=== PATIENT | male | born 1975 | race Hispanic/Latino ===

== ENCOUNTER 2017-12-30 07:09 | Observation (INO) | payer OTHER ==
[2017-12-30] MEDS ORDERED: Naproxen 500 MG TAB PO STA (08:04)
--- NOTE | 2017-12-30 08:26 | ED PDOC ---
Upper Extremity Pain/Injury Time Seen by Provider: 12/30/17 07:34 Chief Complaint (Nursing): Upper Extremity Problem/Injury Chief Complaint (Provider): left arm pain History Per: Patient History/Exam Limitations: no limitations Onset/Duration Of Symptoms: Hrs (04:30) Current Symptoms Are (Timing): Still Present Quality: Other (shooting) Additional Complaint(s): Te Yoo is a 42 year old male, with no significant past medical history, who presents to the emergency department complaining of a shooting left arm pain onset 04:30. Patient states pain is located along the tricep and medial arm. He further states changing positions did not relieve pain. He denies similar symptoms in the past. Patient also reports having shortness of breath after which he discussed with partner and decided to come to ED. Patient is currently taking Lexapro but otherwise is healthy. Over the weekend he felt like having flu-like symptoms including body aches, generalized weakness and diarrhea but reports symptoms resolved by last night. He denies any sick contacts or recent travel. No further medical complaints. PMD: None provided. Past Medical History Reviewed: Historical Data, Nursing Documentation, Vital Signs Vital Signs: Last Vital Signs Temp Pulse 84 12/30/17 07:20 Resp 16 12/30/17 07:20 BP 102/65 12/30/17 07:20 Pulse Ox 99 12/30/17 07:20 - Medical History PMH: No Chronic Diseases - Surgical History Surgical History: No Surg Hx - Family History Family History: States: Unknown Family Hx - Social History Current smoker - smoking cessation education provided: Yes (light smoker <10 ci garettes daily) Alcohol: Social Drugs: Denies - Immunization History Hx Tetanus Toxoid Vaccination: No Hx Influenza Vaccination: No Hx Pneumococcal Vaccination: No - Home Medications Home Medications: Ambulatory Orders Medication Instructions Recorded Escitalopram Oxalate [Lexapro] 5 mg PO DAILY 12/30/17 - Allergies Allergies/Adverse Reactions: Allergies Allergy/AdvReac Type Severity Reaction Status Date / Time No Known Allergies Allergy Verified 12/30/17 07:41 Review of Systems ROS Statement: Except As Marked, All Systems Reviewed And Found Negative Constitutional: Negative for: Weakness Respiratory: Positive for: Shortness of Breath Gastrointestinal: Negative for: Diarrhea Musculoskeletal: Positive for: Arm Pain (left ) Physical Exam - Reviewed Nursing Documentation Reviewed: Yes Vital Signs Reviewed: Yes - Physical Exam Appears: Positive for: No Acute Distress Head Exam: Positive for: ATRAUMATIC Skin: Positive for: Normal Color, Warm, Dry Eye Exam: Positive for: Normal appearance, EOMI, PERRL Neck: Positive for: Painless ROM Cardiovascular/Chest: Positive for: Regular Rate, Rhythm, Chest Non Tender. Negative for: Murmur Respiratory: Positive for: Normal Breath Sounds. Negative for: Respiratory Distress Gastrointestinal/Abdominal: Positive for: Normal Exam, Soft. Negative for: Tenderness, Guarding, Rebound Back: Positive for: Normal Inspection. Negative for: L CVA Tenderness, R CVA Tenderness, Vertebral Tenderness (No tenderness to palpation of spine) Extremity: Positive for: Normal ROM (Full ROM of shoulder and arm. No palpable crepitus or clicking). Negative for: Tenderness, Deformity, Swelling Neurologic/Psych: Positive for: Alert, Oriented, Gait (steady) - Laboratory Results Result Diagrams: 12/30/17 09:20 12/30/17 09:20 - ECG O2 Sat by Pulse Oximetry: 99 (RA) Pulse Ox Interpretation: Normal Medical Decision Making Medical Decision Making: Time: 07:34 Initial Impression: work up for cardiac etiology of pain vs muscle cramping due to electrolyte disturbance due to diarrhea vs radiculopathy. Discuss plan to r/o pulmnoary and electrolyte etiology with pt. through bloodwork. Discuss possibility of radiculopathy and patient prefers to not have imagine of spine done at this time. Discuss findings to determine if further work up is needed Initial Plan: --VBG --BMP --Troponin I --CBC w/ differential --Flexeril 10 mg PO --Naproxen 500 mg PO 10:00 -Troponin at 4, repeat EKG, IV fluids for possible pericarditis. Patient remains comfortable with normal vitals. Already given Naproxen and possible admission for observation. --- 11:[address] Heredia bedside who agress that pt is stable at this point. Recommends repeat troponin at 1:30pm 1:38 Pt's repeat troponin increased to >5.0. Spoke with Dr. Heredia who recommends ECHO and admission for observation but without EKG abnormalities, will not give Heparin or TPA. Spoke to Dr. Irwin who is aware of pt status. Scribe Attestation: Documented by Robby Stock, acting as a scribe for Meena Martini MD. Provider Scribe Attestation: All medical record entries made by the Scribe were at my direction and personally dictated by me. I have reviewed the chart and agree that the record accurately reflects my personal performance of the history, physical exam, medic al decision making, and the department course for this patient. I have also personally directed, reviewed, and agree with the discharge instructions and disposition. Disposition - Clinical Impression Clinical Impression: Elevated troponin, Shortness of breath - Patient ED Disposition Is Patient to be Admitted: Yes - Disposition Disposition Time: 12:30 Condition: GUARDED
[2017-12-30 09:22] LABS: VENOUS BLOOD GAS BASE EXCESS 2.8 mmol/L (0.0-2.0); VENOUS BLOOD GAS PCO2 56 mmHg (40-60); VENOUS BLOOD GAS PO2 21 mm/Hg (30-55); VENOUS BLOOD PH 7.34 (7.32-7.43)
[2017-12-30 09:29] LABS: BASO % 0.5 % (0.0-2.0); EOS # 0.2 K/uL (0.0-0.7); EOS % 2.3 % (0.0-4.0); HEMOGLOBIN 14.5 g/dL (12.0-18.0); LYMPH # 2.2 K/uL (1.0-4.3); LYMPH % 31.6 % (20.0-40.0); MEAN CELL VOLUME 99.3 fl (80.0-94.0); MEAN CORPUSCULAR HEMOGLOBIN 33.9 pg (27.0-31.0); MEAN CORPUSCULAR HGB CONC 34.1 g/dL (33.0-37.0); MEAN PLATELET VOLUME 8.3 fl (7.2-11.7); MONO # 0.9 K/uL (0.0-0.8); MONO % 13.5 % (0.0-10.0); NEUT # 3.7 K/uL (1.8-7.0); NEUT % 52.1 % (50.0-75.0); RBC 4.28 Mil/uL (4.40-5.90); RED CELL DISTRIBUTION WIDTH 13.6 % (11.5-14.5)
[2017-12-30] MEDS ORDERED: Naproxen 500 MG TAB PO ONE (09:32)
[2017-12-30 09:38] LABS: BLOOD UREA NITROGEN 9 mg/dl (9-20); CALCIUM 9.5 mg/dL (8.4-10.2); GFR NON-AFRICAN AMERICAN > 60
[2017-12-30] MEDS ORDERED: Sodium Chloride 0.9% 1,000 ML IV STA (09:54)
--- NOTE | 2017-12-30 11:06 | CARD ---
APPROVED REPORT Date of service: 12/30/2017 EKG Measurement Heart [id number] <Conclusion> Normal sinus rhythm ST elevation, consider early repolarization otherwise normal ECG
--- NOTE | 2017-12-30 12:10 | ED PDOC ---
ED Additional Note - Date & Time of Evaluation Date of Evaluation: 12/30/17 Time of Evaluation: 10:55 - Physician Additional Note Physician Additional Note: This is cardiac consultation. The patient was seen at the request of Dr. Martini in the emergency room. This 42-year-old man came into the emergency room after he experienced left arm ache which woke him up. The patient gives history of having had chills and fever and body ache and diarrhea couple of days back which had resolved yesterday. The patient had also experienced significant neck discomfort on the same day. He denies any injury or trauma to the neck. The patient has smoked off and on for almost 20 years. He also runs approximately 2-2-1/2 miles off and on. He had recently taken this up couple of weeks back. He is able to do this without any chest discomfort of sudden shortness of breath. He denies any history of hypertension or diabetes. One of his grandfathers had of coronary artery disease but otherwise there is no vascular disease in the family. He has never been hospitalized and is not on any chronic medications except Lexapro. Physical examination shows a young man who is quite alert awake coherent afebrile with a pulse rate of 70 bpm regular and a blood pressure of 108/70 mmHg. His jugular venous pressure was not elevated and there was no edema over his lower extremity. The pedal pulses were well felt. There were no carotid br uits. There was no precordial tenderness. The apex was palpable in the fifth space the first and second heart sounds are normal there was no murmur or gallop there were no rales. His abdomen was soft liver and spleen are not palpable. His electrocardiogram showed sinus rhythm with an essentially normal EKG pattern upon admission to the hospital at 7:55 AM and again at 10:30. The initial troponin level was 4.14 ng/dl. the rest of his labs were noted. Impression: Abnormal troponin levels in the setting not suggestive of acute coronary syndrome. The patient at this juncture is free of any discomfort and is hemodynamically stable. He will be observed and serial enzymes will be drawn. At this juncture is hemodynamically stable.
[2017-12-31 00:14] VITALS: RESP 18; O2SAT 99
[2017-12-31 05:56] LABS: BASO % 0.3 % (0.0-2.0); EOS # 0.2 K/uL (0.0-0.7); EOS % 3.1 % (0.0-4.0); HEMOGLOBIN 13.8 g/dL (12.0-18.0); LYMPH # 2.4 K/uL (1.0-4.3); LYMPH % 33.2 % (20.0-40.0); MEAN CELL VOLUME 99.3 fl (80.0-94.0); MEAN CORPUSCULAR HEMOGLOBIN 34.2 pg (27.0-31.0); MEAN CORPUSCULAR HGB CONC 34.4 g/dL (33.0-37.0); MEAN PLATELET VOLUME 8.3 fl (7.2-11.7); MONO # 0.8 K/uL (0.0-0.8); MONO % 11.7 % (0.0-10.0); NEUT # 3.7 K/uL (1.8-7.0); NEUT % 51.7 % (50.0-75.0); RBC 4.03 Mil/uL (4.40-5.90); RED CELL DISTRIBUTION WIDTH 13.7 % (11.5-14.5); WHITE BLOOD COUNT 7.2 K/uL (4.8-10.8)
[2017-12-31 06:26] LABS: LDL CHOLESTEROL 39 mg/dL (0-129)
[2017-12-31 06:48] LABS: BLOOD UREA NITROGEN 13 mg/dl (9-20); CALCIUM 9.4 mg/dL (8.4-10.2); GFR NON-AFRICAN AMERICAN > 60
[2017-12-31 06:49] LABS: ALB/GLOB RATIO 1.3 (1.0-2.1); ALBUMIN 3.5 g/dL (3.5-5.0); ALT/SGPT 34 U/L (21-72); AST/SGOT 58 U/L (17-59); HDL CHOLESTEROL 69 MG/DL (30-70)
--- NOTE | 2017-12-31 07:40 | CP.PCM.HP ---
<Sultan Sofia - Last Filed: 12/31/17 09:26> History of Present Illness - History of Present Illness History of Present Illness: 42 yo male pmhx depression and anxiety presented to [facility] ED yesterday after experiencing shooting left arm pain that woke up the patient. Patient reports pain lasted for 10-15 minutes. Patient reports he had viral illness with generalized aches, subjective fever, chills and diarrhea started on 12/25/17 and resolved on 12/29/17.Denies any chest pain, dyspnea, extremity weakness, nausea, vomiting, headache, dizziness or focal weakness. Patient reports he smokes cig arettes on/off for last 20 yrs and for last 3 months he smokes 5 cigarettes daily. Also, consumes 4-5 drinks of alcohol daily. Denies any heroine or cocaine use.Takes adderall once a week for focus. In ED, patient had elevated troponin and was admitted to evaluate for ACS. ROS: all 12 systems reviewed and negative, except as mentioned in HPI PMHX: depression, anxiety, alcohol use disorder Medications: Lexapro, klonopin (on/off), adderall allergies: NKDA Pshx: denies Social hx: drinks alochol daily, smokes 5 cigarettes/day, denies other drug uses. family hx: Maternal grandfather had CAD PMD: one medical Present on Admission - Present on Admission Any Indicators Present on Admission: No Review of Systems - Review of Systems All systems: reviewed and no additional remarkable complaints except (as mentioned in HPI) Past Patient History - Past Medical History & Family History Past Medical History?: No - Past Social History Smoking Status: Current Some Days Smoker - HEMATOLOGICAL/ONCOLOGICAL Hx AIDS: No Hx Human Immunodeficiency Virus (HIV): No - MUSCULOSKELETAL/RHEUMATOLOGICAL Hx Falls: No - PSYCHIATRIC Hx Substance Use: Yes - SURGICAL HISTORY Hx Surgeries: No - ANESTHESIA Hx Anesthesia: No Meds Allergies/Adverse Reactions: Allergies Allergy/AdvReac Type Severity Reaction Status Date / Time No Known Allergies Allergy Verified 12/30/17 07:41 Physical Exam - Constitutional Appears: Non-toxic, No Acute Distress - Head Exam Head Exam: ATRAUMATIC, NORMAL INSPECTION - Eye Exam Eye Exam: EOMI, Normal appearance, PERRL - ENT Exam ENT Exam: Mucous Membranes Moist - Neck Exam Neck exam: Positive for: Full Rom, Normal Inspection. Negative for: Meningismus - Respiratory Exam Respiratory Exam: Clear to Auscultation Bilateral, NORMAL BREATHING PATTERN. absent: Rhonchi, Wheezes - Cardiovascular Exam Cardiovascular Exam: REGULAR RHYTHM, RRR, +S1, +S2 - GI/Abdominal Exam GI & Abdominal Exam: Normal Bowel Sounds, Soft. absent: Tenderness - Extremities Exam Extremities exam: Positive for: normal inspection. Negative for: calf tenderness - Neurological Exam Neurological exam: Alert, CN II-XII Intact, Oriented x3 - Psychiatric Exam Psychiatric exam: Normal Affect, Normal Mood - Skin Skin Exam: Normal Color, Warm Results - Vital Signs Recent Vital Signs: Last Vital Signs Temp 97.7 F 12/31/17 00:13 Pulse 87 12/31/17 00:13 Resp 18 12/31/17 00:13 BP 107/69 12/31/17 00:13 Pulse Ox 99 12/31/17 00:13 - Labs Result Diagrams: 12/31/17 05:00 12/31/17 05:00 Labs: Laboratory Results - last 24 hr 12/30/17 12/30/17 12/30/17 08:04 09:20 09:20 WBC 7.0 RBC 4.28 L Hgb 14.5 Hct 42.5 MCV 99.3 H MCH 33.9 H MCHC 34.1 RDW 13.6 Plt Count 236 MPV 8.3 Neut % (Auto) 52.1 Lymph % (Auto) 31.6 [place] % (Auto) 13.5 H Eos % (Auto) 2.3 Baso % (Auto) 0.5 Neut # (Auto) 3.7 Lymph # (Auto) 2.2 [place] # (Auto) 0.9 H Eos # (Auto) 0.2 Baso # (Auto) 0.0 pO2 21 L VBG pH 7.34 VBG pCO2 56 VBG HCO3 25.0 VBG Total CO2 31.9 H VBG O2 Sat (Calc) 32.8 L VBG Base Excess 2.8 H VBG Potassium 4.0 Sodium 139.0 142 Chloride 100.0 104 Glucose 75 Lactate 0.7 FiO2 21.0 Potassium 4.2 Carbon Dioxide 28 Anion Gap 14 BUN 9 Creatinine 0.6 L Est GFR ( Amer) > 60 Est GFR (Non-Af Amer) > 60 Random Glucose 87 Calcium 9.5 Total Bilirubin AST ALT Alkaline Phosphatase Troponin I 4.1400 H* Total Protein Albumin Globulin Albumin/Globulin Ratio Triglycerides Cholesterol LDL Cholesterol Direct HDL Cholesterol Venous Blood Potassium 4.0 12/30/17 12/30/17 12/31/17 11:55 20:02 05:00 WBC 7.2 RBC 4.03 L Hgb 13.8 Hct 40.0 MCV 99.3 H MCH 34.2 H MCHC 34.4 RDW 13.7 Plt Count 248 MPV 8.3 Neut % (Auto) 51.7 Lymph % (Auto) 33.2 [place] % (Auto) 11.7 H Eos % (Auto) 3.1 Baso % (Auto) 0.3 Neut # (Auto) 3.7 Lymph # (Auto) 2.4 [place] # (Auto) 0.8 Eos # (Auto) 0.2 Baso # (Auto) 0.0 pO2 VBG pH VBG pCO2 VBG HCO3 VBG Total CO2 VBG O2 Sat (Calc) VBG Base Excess VBG Potassium Sodium Chloride Glucose Lactate FiO2 Potassium Carbon Dioxide Anion Gap BUN Creatinine Est GFR ( Amer) Est GFR (Non-Af Amer) Random Glucose Calcium Total Bilirubin AST ALT Alkaline Phosphatase Troponin I 5.1900 H* 5.1000 H* Total Protein Albumin Globulin Albumin/Globulin Ratio Triglycerides Cholesterol LDL Cholesterol Direct HDL Cholesterol Venous Blood Potassium 12/31/17 05:00 WBC RBC Hgb Hct MCV MCH MCHC RDW Plt Count MPV Neut % (Auto) Lymph % (Auto) [place] % (Auto) Eos % (Auto) Baso % (Auto) Neut # (Auto) Lymph # (Auto) [place] # (Auto) Eos # (Auto) Baso # (Auto) pO2 VBG pH VBG pCO2 VBG HCO3 VBG Total CO2 VBG O2 Sat (Calc) VBG Base Excess VBG Potassium Sodium 139 Chloride 104 Glucose Lactate FiO2 Potassium 4.9 Carbon Dioxide 28 Anion Gap 12 BUN 13 Creatinine 0.8 Est GFR ( Amer) > 60 Est GFR (Non-Af Amer) > 60 Random Glucose 113 H Calcium 9.4 Total Bilirubin 0.2 AST 58 ALT 34 Alkaline Phosphatase 45 Troponin I Total Protein 6.3 Albumin 3.5 Globulin 2.8 Albumin/Globulin Ratio 1.3 Triglycerides 85 Cholesterol 137 LDL Cholesterol Direct 39 HDL Cholesterol 69 Venous Blood Potassium Assessment & Plan - Assessment and Plan (Free Text) Assessment: Assessment: 42 yo male pmhx depression and anxiety presented to ED for left arm pain yesterday. Patient is admitted to telemetry for elevated troponin and evaluation for ACS. Plan: Admit to Telemetry Cardiology consult appreciated Dr. Heredia Follow serial of troponin Follow ECG for any evolution Labs Patient seen and examined with Dr. Irwin during rounds this AM Sultan Black, [id number] <Kingsley Irwin - Last Filed: 01/01/18 20:35> Results - Vital Signs Recent Vital Signs: Last Vital Signs Temp 98.1 F 12/31/17 12:22 Pulse 80 12/31/17 12:22 Resp 18 12/31/17 12:22 BP 123/80 12/31/17 12:22 Pulse Ox 99 12/31/17 12:22 - Labs Result Diagrams: 12/31/17 05:00 12/31/17 05:00 Labs: Laboratory Results - last 24 hr 12/31/17 05:00 25-OH Vitamin D Total 26 L Assessment & Plan - Assessment and Plan (Free Text) Assessment: Patient was personally seen and examined by me in rounds with residents. Available labs and diagnostic data reviewed. Case, Patient's condition and management plan discussed with residents in rounds. Agree with resident's progress note. Plan: As ordered.
--- NOTE | 2017-12-31 07:41 | CARD ---
APPROVED REPORT Date of service: 12/31/2017 EKG Measurement Heart [id number] <Conclusion> Normal sinus rhythm with sinus arrhythmia ST elevation, consider inferolateral injury, pericarditis, or early repolarization RSR' in v1 suggests RV conduction delay Abnormal ECG
--- NOTE | 2017-12-31 08:06 | CARD ---
APPROVED REPORT Date of service: 12/30/2017 EXAM: Two-dimensional and M-mode echocardiogram with Doppler and color Doppler. Other Information Quality : GoodRhythm : NSR INDICATION Elevated Troponin 2D DIMENSIONS IVSd1.14 (0.7-1.1cm)LVDd4.90 (3.9-5.9cm) LVOT Diameter1.86 (1.8-2.4cm)PWd1.12 (0.7-1.1cm) IVSs1.53 (0.8-1.2cm)LVDs3.01 (2.5-4.0cm) FS (%) 38.6 %PWs1.56 (0.8-1.2cm) M-Mode DIMENSIONS Left Atrium (MM)3.18 (2.5-4.0cm)IVSd1.26 (0.7-1.1cm) Aortic Root2.82 (2.2-3.7cm)LVDd5.03 (4.0-5.6cm) Aortic Cusp Exc.2.38 (1.5-2.0cm)PWd0.94 (0.7-1.1cm) IVSs1.65 cmFS (%) 33 % LVDs3.35 (2.0-3.8cm)PWs1.35 cm Aortic Valve AoV Peak Fvdiffrp086.5cm/sAoV VTI19.8cmAO Peak GR.5mmHg LVOT Peak Kymacjaj691.9cm/sLVOT VTI20.76cmAO Mean GR.3mmHg NO (VMAX)1.10jg1PQW (VTI)1.54cm2 Mitral Valve E/A ratio0.0 TDI E/Lateral E'0.0E/Medial E'0.0 Pulmonary Valve PV Peak Tdftvinp545.6cm/s LEFT VENTRICLE The left ventricle is normal size. There is normal left ventricular wall thickness. Left ventricle systolic function is normal. The Ejection Fraction is 65-70%. LVEF is 65-70%. There is normal LV segmental wall motion. The left ventricular diastolic function is normal. RIGHT VENTRICLE The right ventricle is normal size. There is normal right ventricular wall thickness. The right ventricular systolic function is normal. ATRIA The left atrium size is normal. The right atrium size is normal. AORTIC VALVE The aortic valve is normal in structure. No aortic regurgitation is present. There is no aortic valvular stenosis. MITRAL VALVE The mitral valve is normal in structure. There is no evidence of mitral valve prolapse. There is no mitral valve stenosis. Mitral regurgitation is trace to mild. TRICUSPID VALVE The tricuspid valve is normal in structure. There is no tricuspid valve regurgitation noted. PULMONIC VALVE The pulmonary valve is normal in structure. There is no pulmonic valvular regurgitation. GREAT VESSELS The aortic root is normal in size. The IVC is normal in size and collapses >50% with inspiration. PERICARDIAL EFFUSION The pericardium appears normal. <Conclusion> The left ventricle is normal size. There is normal left ventricular wall thickness. There is normal LV segmental wall motion. Left ventricle systolic function is normal. The Ejection Fraction is 65-70%. The left ventricular diastolic function is normal.
--- NOTE | 2017-12-31 10:01 | CP.PCM.PN ---
Subjective - Date & Time of Evaluation Date of Evaluation: 12/31/17 Time of Evaluation: 08:30 - Subjective Subjective: The patient has been quite symptom free overnight. The telemetry shows steady sinus rhythm at physiological rates. Patient denies any chest pain or left arm ache. On examination his heart rate was 70 bpm and regular with a blood pressure of 104/70 mmHg. His jugular venous pressure was not elevated and there was no edema over his lower extremities. His heart sounds were few and his chest was clear. Review off his echocardiogram shows a normal-sized left ventricle with normal systolic function and diastolic function. A trace mitral regurgitation was detected. Troponin levels this morning with 3.35 ng per DL (markedly reduced from the levels of yesterday.) Electro-cardial gram this morning shows sinus rhythm with no Q waves while T waves in V3 V4 and V5 aren't markedly peaked ST segment is mildly elevated in leads 23 aVF though it does not seem to suggest an acute ST elevation SD Even though his presentation was ordered, abnormal electrocardiograms and elevated troponins required that an acute coronary syndrome was ruled out. Accordingly, I have arranged for an early coronary angiogram which the patient prefers be done at [facility]. I have arranged this with Dr. Miller. The patient concurs with this line of management. Objective - Vital Signs/Intake and Output Vital Signs (last 24 hours): Temp Pulse Resp BP Pulse Ox 97.8 F 83 18 116/76 99 12/31/17 08:03 12/31/17 08:03 12/31/17 08:03 12/31/17 08:03 12/31/17 08:03 - Medications Medications: Current Medications Aspirin (Aspirin Chewable) 81 mg PO DAILY [facility] Enoxaparin Sodium (Lovenox) 40 mg SC DAILY [facility]; Protocol Escitalopram Oxalate (Lexapro) 5 mg PO DAILY [facility] - Labs Labs: 12/31/17 05:00 12/31/17 05:00
[2017-12-31] MEDS: Enoxaparin 40 mg Syringe SC SCH ×2 (11:17→11:25)
[2017-12-31 12:23] VITALS: BP 123/80; PULSE 80; TEMP 98.1
[2017-12-31 13:04] LABS: BARBITURATES, UR NEGATIVE (NEGATIVE); BENZODIAZEPINES, UR NEGATIVE (NEGATIVE); OPIATES, UR NEGATIVE (NEGATIVE); PHENCYCLIDINE, UR NEGATIVE (NEGATIVE)
--- NOTE | 2017-12-31 14:01 | CP.PCM.CON ---
History of Present Illness - History of Present Illness History of Present Illness: 42 yo male with previous depression and anxiety presented to [facility] ED yesterday after experiencing shooting left arm pain that woke up the patient. on evaluation pt reported being diagnosed with depression 15 ys ago, relates it to work stress , managed by PMD and placed on lexapro, pt also have behavioral therapist he sees every week, pt stated he uses adderrall to help with concentration, uses alcohol stating more than he would like to but denied black outs DT'S denied seizures gn further interviewing pt stated he tends to have mood swings, poor sleep and increased energy at times denied previous suicidal attempts, denied any current suicidal ideation, denied perceptual disturbances interviewed pt by bed side upon consent of pt, she indicated pt has been consuming exess alcohol abusing addrall, increase risk taking behaviour , overspending, , no reported previous suicidal attempts or ideation reported Past Patient History - Past Medical History & Family History Past Medical History?: No - Past Social History Smoking Status: Current Some Days Smoker - HEMATOLOGICAL/ONCOLOGICAL Hx AIDS: No Hx Human Immunodeficiency Virus (HIV): No - MUSCULOSKELETAL/RHEUMATOLOGICAL Hx Falls: No - PSYCHIATRIC Hx Substance Use: Yes - SURGICAL HISTORY Hx Surgeries: No - ANESTHESIA Hx Anesthesia: No Meds Allergies/Adverse Reactions: Allergies Allergy/AdvReac Type Severity Reaction Status Date / Time No Known Allergies Allergy Verified 12/30/17 07:41 - Medications Medications: Current Medications Aspirin (Aspirin Chewable) 81 mg PO DAILY [facility] Last Admin: 12/31/17 11:25 Dose: 81 mg Enoxaparin Sodium (Lovenox) 40 mg SC DAILY [facility]; Protocol Last Admin: 12/31/17 11:25 Dose: Not Given Escitalopram Oxalate (Lexapro) 5 mg PO DAILY [facility] Last Admin: 12/31/17 11:16 Dose: 5 mg Physical Exam - Psychiatric Exam Additional comments: pt seen in bed , cooperative, mood anxious affect appropriate, speech normal thought form coherent, denied suicidal or homicidal ideation denied perceptual disturbances, alert awake ox3 Results - Vital Signs Recent Vital Signs: Last Vital Signs Temp 98.1 F 12/31/17 12:22 Pulse 80 12/31/17 12:22 Resp 18 12/31/17 12:22 BP 123/80 12/31/17 12:22 Pulse Ox 99 12/31/17 12:22 - Labs Result Diagrams: 12/31/17 05:00 12/31/17 05:00 Labs: Laboratory Results - last 24 hr 12/30/17 12/31/17 12/31/17 20:02 05:00 05:00 WBC 7.2 RBC 4.03 L Hgb 13.8 Hct 40.0 MCV 99.3 H MCH 34.2 H MCHC 34.4 RDW 13.7 Plt Count 248 MPV 8.3 Neut % (Auto) 51.7 Lymph % (Auto) 33.2 Beadle % (Auto) 11.7 H Eos % (Auto) 3.1 Baso % (Auto) 0.3 Neut # (Auto) 3.7 Lymph # (Auto) 2.4 Beadle # (Auto) 0.8 Eos # (Auto) 0.2 Baso # (Auto) 0.0 Sodium 139 Potassium 4.9 Chloride 104 Carbon Dioxide 28 Anion Gap 12 BUN 13 Creatinine 0.8 Est GFR ( Amer) > 60 Est GFR (Non-Af Amer) > 60 Random Glucose 113 H Hemoglobin A1c Calcium 9.4 Total Bilirubin 0.2 AST 58 ALT 34 Alkaline Phosphatase 45 Troponin I 5.1000 H* 3.3500 H* Total Protein 6.3 Albumin 3.5 Globulin 2.8 Albumin/Globulin Ratio 1.3 Triglycerides 85 Cholesterol 137 LDL Cholesterol Direct 39 HDL Cholesterol 69 Vitamin B12 TSH 3rd Generation Urine Opiates Screen Urine Methadone Screen Ur Barbiturates Screen Ur Phencyclidine Scrn Ur Amphetamines Screen U Benzodiazepines Scrn U Oth Cocaine Metabols U Cannabinoids Screen 12/31/17 12/31/17 12/31/17 06:55 07:00 10:11 WBC RBC Hgb Hct MCV MCH MCHC RDW Plt Count MPV Neut % (Auto) Lymph % (Auto) Beadle % (Auto) Eos % (Auto) Baso % (Auto) Neut # (Auto) Lymph # (Auto) Beadle # (Auto) Eos # (Auto) Baso # (Auto) Sodium Potassium Chloride Carbon Dioxide Anion Gap BUN Creatinine Est GFR ( Amer) Est GFR (Non-Af Amer) Random Glucose Hemoglobin A1c 5.1 Calcium Total Bilirubin AST ALT Alkaline Phosphatase Troponin I 2.7100 H* Total Protein Albumin Globulin Albumin/Globulin Ratio Triglycerides Cholesterol LDL Cholesterol Direct HDL Cholesterol Vitamin B12 236 L TSH 3rd Generation 0.60 Urine Opiates Screen Urine Methadone Screen Ur Barbiturates Screen Ur Phencyclidine Scrn Ur Amphetamines Screen U Benzodiazepines Scrn U Oth Cocaine Metabols U Cannabinoids Screen 12/31/17 12:30 WBC RBC Hgb Hct MCV MCH MCHC RDW Plt Count MPV Neut % (Auto) Lymph % (Auto) Beadle % (Auto) Eos % (Auto) Baso % (Auto) Neut # (Auto) Lymph # (Auto) Beadle # (Auto) Eos # (Auto) Baso # (Auto) Sodium Potassium Chloride Carbon Dioxide Anion Gap BUN Creatinine Est GFR ( Amer) Est GFR (Non-Af Amer) Random Glucose Hemoglobin A1c Calcium Total Bilirubin AST ALT Alkaline Phosphatase Troponin I Total Protein Albumin Globulin Albumin/Globulin Ratio Triglycerides Cholesterol LDL Cholesterol Direct HDL Cholesterol Vitamin B12 TSH 3rd Generation Urine Opiates Screen Negative Urine Methadone Screen Negative Ur Barbiturates Screen Negative Ur Phencyclidine Scrn Negative Ur Amphetamines Screen Negative U Benzodiazepines Scrn Negative U Oth Cocaine Metabols Negative U Cannabinoids Screen Negative Assessment & Plan - Assessment and Plan (Free Text) Assessment: depression rule out bipolar disorder alcohol abuse stimulant abuse Plan: recommend that pt would follow up with psychiatrist to rule out bipolar disorder with possible benefit of being started on mood stabilizer rather than lexapro pt would benefit from referral to outpatient [facility] program possible high focus for treatment targeted towards substance use pt at current mental status denied suicidal or homicidal ideation psychiatricall y cleared for discharge when medically cleared
== END 2017-12-31 13:30 | disposition short-term general hospital (02) ==
LOC: H.ER 07:09 → H.ERHOLD 12:04 → H.TEL 16:54
PROVIDERS: ADMIT Internal Medicine; ATTEND Internal Medicine
DX: F32.9 Major depressive disorder, single episode, unspecified (principal); Z82.49 Family history of ischemic heart disease and other diseases of the circulatory system; F41.9 Anxiety disorder, unspecified; Z79.899 Other long term (current) drug therapy; M79.602 Pain in left arm; R74.8 Abnormal levels of other serum enzymes; F10.10 Alcohol abuse, uncomplicated; F15.10 Other stimulant abuse, uncomplicated; F17.210 Nicotine dependence, cigarettes, uncomplicated
CPT/HCPCS: 36415; 80048; 80053; 80061; 80324; 80345; 80346; 80349; 80353; 80358; 80361; 82306; 82607; 82803; 83036; 83992; 84443; 84484; 85025; 93005; 93306; 96360; 99283; G0378; J7030